=== PATIENT | female | born 1985 | race Hispanic/Latino ===

== ENCOUNTER 2024-07-30 16:33 | Emergency (ER) | payer OTHER, SELFPAY ==
[2024-07-30 16:36] VITALS: BP 187/125
[2024-07-30 17:02] VITALS: BP 181/112
--- NOTE | 2024-07-30 17:02 | ED.GENMED ---
History of Present Illness
General
Chief Complaint: Blood Pressure Problem
Source: patient
Exam Limitations: none
Time Seen by Provider: 07/30/24 17:02
Nursing documentation reviewed up to this point in time: agreed with
History of Present Illness
History of Present Illness:
The patient is a very nice 38-year-old female who reports that she has had a diagnosis of hypertension since her 20s. Patient reports that she takes 2.5 mg of amlodipine but recently has not been taking it, for at least 2 months, due to feeling was
though it really does not work. Patient reports that she recently got off of a 20-hour flight 4 days ago. She reports that when the flight took off, she experienced sudden pain in her left ear. Since then, the pain has improved in her left ear,
however, she still has some pressure when feels like her head ' is underwater.' Patient reports she went to urgent care prior to arrival to get her left ear checked. When they found her blood pressure to be very elevated, she was referred to the
ED. Patient denies chest pain and shortness of breath. Patient reports that she has pressure in her whole head. She denies vision changes, nausea, vomiting and rash. She denies weakness and numbness. She reports that multiple family members
also have blood pressure issues.
Past History
Past History
ED Past Medical History: HTN
ED Past Surgical History:
Social History
Tobacco: Other
Alcohol: Occasional
Drug: None
Personal:
Living: with family
Employment: Other
Family History
Family History: Hypertension
Review of Systems
Review of Systems
Allergies reviewed?: Yes
All Other Systems: ROS reviewed and negative except as documented in HPI and ROS
Constitutional: Reports no symptoms
EENT: Reports other (Pressure in left ear)
Respiratory: Reports no symptoms
Cardiac: Reports no symptoms
ABD/GI: Reports no symptoms
: Reports no symptoms
Musculoskeletal: Reports no symptoms
Skin: Reports no symptoms
Neurological: Reports headache
Endocrine: Reports no symptoms
Hematologic/Lymphatic: Reports no symptoms
Psychiatric: Reports no symptoms
Phy Exam
Physical Exam
Physical Exam:
Physical Exam
General: no apparent distress, not acutely ill. Well appearing. No photophobia
Neck: supple. no meningeal signs. normal psoterior pharynx. Tympanic membranes appear normal bilaterally
Heart: s1/s2 regular rate and rhythm, no murmur. equal radial pulses.
Lungs: no acute respiratory distress. clear bilaterally
Abdomen: normal bowel sounds. not tender. no CVAT
Neuro: alert and oriented. no focal neurological deficits
Skin: no rash
Psychiatric: well kept. interactive and cooperative
Extremities: no edema. no calf tenderness. negative homans. good distal pulses
Course
Orders/Labs/Results
Orders:
Orders
07/30/24 16:41
EKG [Electrocardiogram (*1)] Urgent
Reason for Study: Hypertension, Benign
EKG- Treatment ONCE
Test Result ONCE
07/30/24 16:50
Complete Blood Count/With Diff Urgent
Comprehensive Metabolic Panel Urgent
HCG, Serum Qualitative Screen Urgent
Troponin I Urgent
07/30/24 17:39
Amlodipine [Norvasc] 5 mg PO NOW STA
07/30/24 17:40
CT Head W/o Iv Contrast Urgent
Comment:
Reason For Exam: headache, high BP
Acetaminophen [Tylenol] 1,000 mg PO NOW STA
Abnormal Lab Results
07/30/24
16:50
MCH 32.5 H pg
(27.0-31.0)
BUN 20 H mg/dl
(7-17)
ALT 62 H U/L
(0-35)
07/30/24 16:50
07/30/24 16:50
Vital Signs
Initial and Last Documented VS:
Initial Vital Signs
Temp Pulse Resp BP Pulse Ox
98.0 F 75 18 187/125 99
07/30/24 16:36 07/30/24 16:36 07/30/24 16:36 07/30/24 16:36 07/30/24 16:36
Last Documented Vital Signs
Temp Pulse Resp BP Pulse Ox
98.0 F 60 15 139/104 98
07/30/24 16:36 07/30/24 18:10 07/30/24 17:45 07/30/24 19:00 07/30/24 19:32
MDM/Problems Addressed
Differential Diagnosis Includes:
Hypertensive urgency, hypertensive emergency, intracranial hemorrhage, left otitis media
MDM/Problems Addressed:
Patient presents with acute headache and high blood pressure
Chronic conditions affecting care: HTN
Acute Exacerbation and/or Progression of Chronic Illness:
Patient likely has acute exacerbation of high blood pressure due to poor blood pressure control
*Radiology
Radiology exam reviewed: radiology read reviewed
*Pulse Oximetry
Patient hypoxic: no
*EKG
Interpreted by ED Provider?: Yes
Interpretation: normal
Comparison EKG: no comparison EKG present
Rate: normal
Rhythm: sinus
[place]: normal axis
Interval: normal interval
QRS Pattern: right bundle branch block
Ischemia: no ischemia
*Gas Pump Attendant Interpretation
Rate: normal
Interpretation: normal
Rhythm: sinus
*Critical Care Note
Total Time (30-74mins, 75-104mins- exclusive of procedures): Not Applicable
Data Reviewed
Source: patient and spouse
Patient Management
Social determinants of health affecting care: Living situation and Strong social support
Escalation/DeEscalation of care consider admission/obs:
Patient's headache is better. There is no sign of endorgan damage and patient's blood pressure is improved with 5 mg of amlodipine. Patient encouraged to increase her amlodipine dose from 2.5 mg to 5 mg until follow-up with her doctor in about 1
week
ED Attending Note
-
Portions of this chart may have been created with voice recognition software.� Occasional wrong word or��sound alike� substitutions may have occurred due to the inherent limitations of voice recognition software.
Discharge Plan
Departure
Patient Disposition: Home (Routine Discharge)
Date of Disposition: 07/30/24
Time of Disposition: 19:41
Patient with high blood pressure during this ER visit?: Yes
Condition: Good
Covid-19: Not Applicable
Discharge Problem:
High blood pressure
Instructions: High Blood Pressure (DC), BLOOD PRESSURE
Referrals:
Lei Nunn MD [Family Provider] -
Activity Restrictions/Additional Instructions:
Please follow-up with your primary care doctor in the office in about 1 week to have your blood pressure rechecked.
It is important that you take 5 mg of the amlodipine once a day instead of the 2.5 mg dose.
Interventions
Interventions:
*Risk Screen - Suicide Last Done: 07/30/24 16:36
*General Assessment Last Done: 07/30/24 16:36
*Neglect/Abuse Screening Last Done: 07/30/24 19:35
*ED- Fall Risk Assessment Last Done: 07/30/24 19:32
*ED COVID-19 Vaccine History Last Done: 07/30/24 16:36
ED- Cardiac Assessment Last Done: 07/30/24 19:32
ED- Neurological Assessment Last Done: 07/30/24 19:32
ED- Pulmonary Assessment Last Done: 07/30/24 19:32
Discharge Date and Time
Print Language: [place] CITIZEN
[2024-07-30 17:12] LABS: % Basophils 0.5 % (0-2); % Eosinophils 4.1 % (0-6); % Immature Granulocytes 0.3 % (0-0.5); % Lymphocytes 31.9 % (20.5-51.1); % Monocytes 6.3 % (1.7-9.3); % Neutrophils 56.9 % (42.2-75.2); Absolute Eosinophils 0.3 10^3/uL (0-0.7); Absolute Monocytes 0.4 10^3/uL (0.1-0.6); Absolute Neutrophils 3.5 10^3/uL (1.4-6.5); Hematocrit 42.4 % (37.0-47.0); Hemoglobin 14.9 g/dL (12.0-16.0); Mean Corp Hgb Conc. 35.1 g/dL (33.0-37.0); Mean Corpuscular Hgb 32.5 pg (27.0-31.0); Mean Corpuscular Volume 92.4 fL (81.0-99.0); Nucleated Red Blood Cells % 0 %; Platelet Count 254 10^3/uL (130-400); Red Blood Cell Count 4.59 10^6/uL (4.20-5.40); Red Cell Dist. Width 11.7 % (11.5-14.5); White Blood Cell Count 6.2 10^3/uL (4.8-10.8)
[2024-07-30 17:17] LABS: HCG, Serum Qualitative Screen Negative
[2024-07-30 17:23] LABS: ALT (SGPT) 62 U/L (0-35); AST (SGOT) 31 U/L (14-36); Albumin 4.9 g/dl (3.5-5.0); Alkaline Phosphatase 67 U/L (38-126); Blood Urea Nitrogen 20 mg/dl (7-17); Calcium 9.2 mg/dl (8.4-10.2); Carbon Dioxide 27 mmol/L (22-30); Chloride 101 mmol/L (98-107); Glucose 96 mg/dl (70-99); Potassium 3.6 mmol/L (3.5-5.1); Sodium 139 mmol/L (135-145); Total Bilirubin 1.1 mg/dl (0.2-1.3); eGFR > 60.00
[2024-07-30 17:28] LABS: Troponin I < 0.012 ng/ml
[2024-07-30 18:00] VITALS: BP 143/101
[2024-07-30] MEDS: TYLENOL 1000 MG PO (18:01)
[2024-07-30] MEDS: NORVASC 5 MG PO (18:01)
[2024-07-30 18:40] VITALS: BP 150/104
[2024-07-30 19:00] VITALS: BP 139/104
== END 2024-07-30 20:24 | disposition home or self-care (01) ==
LOC: EMR 16:33
PROVIDERS: Emergency Medicine; EMERGENCY PHYSICIAN Emergency Medicine; FAMILY PHYSICIAN Family Medicine
DX: I10 Essential (primary) hypertension (principal)
CPT/HCPCS: 99285; 70450; 80053; 84484; 84703; 85025; 93005